=== PATIENT | male | born 1970 | race Caucasian/White ===

== ENCOUNTER 2019-09-19 21:48 | Observation (INO) ==
--- NOTE | 2019-09-19 22:30 | DR.GENAD ---
HPI - PCP Primary Care Physician: NFD - Complaint/Symptoms Chief Complaint Doctors Comments: Patient states he ate a sausage dog at 12 noon and went hog hunting and 12:30 he caught a hog and his noticed that his color was going away and he was pale while he was holding the hog down. States he was catching hogs and cutting there tuff so they would not hurts his dogs. states he started sweating; his eyes rolled back into his head and he threw up on himself and they gave him some peppermint candy and he begin to come around and talk more. States he could not see or hear them during this episode and he had an occipital headache and when he got home he took a tylenol but he had a dull pain left side of his chest with dizziness after he was running after the hog. States the pain is 5 of 10. He denies chest pain but had SOB earlier when he passed out. He denies dysuria, hematuria, fever, chills, cold or cough. He has a history of kidney stones with the last one about a year ago.He denies tobacco, alcohol or drug usage. Chief Complaint:: FAMILY/PATIENT STATES AROUND 6 PM WHILE HE WAS IN THE [place] HE GOT PALE COLD SWEATS THREW UP AND THEN GOT A HEAD ACHE, ACHE SOMETHING BUT DIDNT FEEL ANY BETTER , HAVING PAIN UNDER LEFT SIDE BUT THREW A HOG IN THE [place], FAMILY STATES HE IS STILL PALE SOME, PT STATES HE TOOK BC POWDER AROUND 1 PM AND TYELNOL AROUND 6 PM. PT IN NO DISTRESS IN TRIAGE. Self Treatment fo Chief Complaint: TYLENOL 6 PM. BC 1 PM - Nurses notes reviewed Nurses Notes Review: Yes - Source History Provided: Patient - Mode of Arrival Mode of Arrival: Ambulatory - Timing Onset of Chief Complaint: 09/19/19 Came on: Gradually - Duration Duration: Constant How lon Duration: Hours (left sided chest pain; headache;; syncope) - Severity Severity: Moderate - Modifying Factors Worsens:: nothing Improves:: nothing PMH - PMH Past Medical History: No Past Medical History: Kidney Stones Past Surgical History: Yes Surgical History: Ortho Surgery Past Surgical History Comment: RIGHT ARM/ PINS PLACED AND REMOVED - Family History History of Family Medical Conditions: Yes Family Medical History: Diabetes Mellitus, Cancer - Social History Does patient currently use any type of tobacco product: No Have you used tobacco products in the last 12 months: No Type of Tobacco Use: None Does any household member use tobacco: No Alcohol Use: None Do you use any recreational Drugs:: No Lives With: Family Lives Where: Home - infectious screening In the last 2 months have you had wt loss of >10#?: NO Have you had fever, night sweats or hemotysis?: No Have you traveled outside the country in the last 6 months?: No Isolation: Standard ROS - Review of Systems Constitutional: No Symptoms Reported Eyes: No Symptoms Reported ENTM: No Symptoms Reported Respiratoy: No Symptoms Reported Cardiovascular: No Symptoms Reported, Chest Pain (left dull pain) Gastrointestinal/Abdominal: No Symptoms Reported Genitourinary: No Symptoms Reported. negative: See HPI, Discharge, Dysuria, Frequency, Hematuria, Pain, Bleeding, Other Neurological: No Symptoms Reported, Weakness, Dizziness Musculoskeletal: No Symptoms Reported Integumentary: No Symptoms Reported Hematologic/Lymphatic: No Symptoms Reported. negative: See HPI, Anemia, Blood Clots, Easy Bleeding, Easy Bruising, Swollen Glands, Lymphadenopathy, Other Endocrine: No Symptoms Reported Psychiatric: No Symptoms Reported. negative: See HPI, Anxiety, Depression, Hallucinations, Excessive crying, Suicidal, Other PE - General Limitations: No Limitations General Appearance: Alert, In No Apparent Distress, Obese - Head Head Exam: Normal Inspection, Atraumatic, Normocephalic - Eyes Eye exam: Normal Appearance, PERRL, EOMI. negative: Scleral Icterus, Conjunctival Injection, Nystagmus, Miosis, Mydrasis, Periorbital Swelling, Periorbital Tenderness, Other - ENT ENT Exam: Normal Exam, Normal Oropharynx, Normal External Ear Exam, Mucous Membranes Moist, TM's Normal Bilaterally External Ear Exam: Normal External Inspection TM/Canal Exam: Bilateral Normal Nose Exam: Normal Nose Exam Mouth Exam: Normal Inspection. negative: Drooling, Trismus, Lip Swelling, Tongue Elevation, Tongue Swelling, Laceration, Other Throat Exam: Normal Inspection - Neck Neck Exam: Normal Inspection, Full ROM, Trachea Midline. negative: Tenderness, Meningismus, Lymphadenopathy, Thyromegaly, Other - Chest Chest Inspection: Normal Inspection, Symmetric Chest Wall Rise. negative: Tenderness, Rash, Abscess, Other - Respiratory Respiratory Exam: Normal Lung Sounds Bilat Respiratory Exam: Bilateral Clear to Auscultation - Cardiovascular Cardiovascular Exam: Regular Rate, Normal Rhythm, Normal Heart Sounds - Abdominal Exam Abdominal Exam: Normal Inspection, Normal Bowel Sounds, Soft Abdominal Tenderness: negative: RUQ, RLQ, LUQ, LLQ, Epigastrium, Suprapubic, Diffuse, Mild, Moderate, Severe, Other - Extremities Extremities Exam: Normal Inspection, Full ROM, Normal Capillary Refill. negative: Tenderness, Edema, Joint Swelling, Calf Tenderness, Other - Back Back Exam: Normal Inspection, Full ROM, Tenderness - Neurologic Neurological Exam: Alert, Oriented X3, CN II-XII Intact, Normal Gait, Reflexes Normal - Psychiatric Psychiatric Exam: Normal Affect, Normal Mood. negative: Depressed, Agitated, Anxious, Flat Affect, Manic, Homicidal Ideation, Suicidal Ideation, Other - Skin Skin Exam: Warm, Dry, Intact, Normal Color - Vital Signs Vitals: Temperature 97.8 F Pulse Rate [Standing] 80 Pulse Rate [Sitting] 82 Pulse Rate [Lying] 82 Pulse Rate 65 Respiratory Rate 20 Blood Pressure [Left Arm] 116/73 Blood Pressure [Standing] 148/83 Blood Pressure [Sitting] 138/84 Blood Pressure [Lying] 121/74 Blood Pressure 116/73 O2 Sat by Pulse Oximetry 96 Course - Reevaluation 1st: Improved - Consultation Called: 00:51 Call Returned: 00:51 (Dr. Esteban to admit) - Education/Counseling Education/Counseling: Patient, Family, Counseling Educated On: Treatment, Diagnosis, Needs for Follow Up ROR - Labs Reviewed Laboratory Results Reviewed?: Yes (ALL labs and x-ray results reviewed and discussed with patient) Result Diagrams: 09/19/19 23:16 09/19/19 23:16 - XRAY XRAY Interpreted by: Radiologist (CT head: No acute intracranial hemorrhage.) XRAY Findings: CXR: no acute cardiopulmonary changes; heart size prominent. - EKG Rate: 56 [place]: Normal Rhythm: NSR, SB Block: None Hypertrophy: None ST: Normal - Labs Reviewed Laboratory: WBC 7.6 X10^3/uL (3.6-10.0) 09/19/19 23:16 RBC 4.83 X10^6/uL (4.7-6.0) 09/19/19 23:16 Hgb 14.2 g/dL (13.5-18.0) 09/19/19 23:16 Hct 41.2 % (42.0-54.0) L 09/19/19 23:16 MCV 85.3 fL (80.0-100.0) 09/19/19 23:16 MCH 29.4 pg (27.0-34.0) 09/19/19 23:16 MCHC 34.4 g/dL (33.0-35.0) 09/19/19 23:16 RDW 13.9 % (11.6-16.5) 09/19/19 23:16 Plt Count 236 X10^3/uL (150.0-450.0) 09/19/19 23:16 MPV 7.8 fL (7.4-11.0) 09/19/19 23:16 Neut % (Auto) 55.4 % (42.0-75.0) 09/19/19 23:16 Lymph % (Auto) 32.9 % (21.0-51.0) 09/19/19 23:16 [place] % (Auto) 8.9 % (0.0-13.0) 09/19/19 23:16 Eos % (Auto) 2.1 % (0.9-2.9) 09/19/19 23:16 Baso % (Auto) 0.7 % (0.2-1.0) 09/19/19 23:16 Neut # (Auto) 4.2 x10^3/uL (2.2-4.8) 09/19/19 23:16 Lymph # (Auto) 2.5 X10^3/uL (1.3-2.9) 09/19/19 23:16 Bennett # (Auto) 0.7 x10^3/uL (0.3-0.8) 09/19/19 23:16 Eos # (Auto) 0.2 x10^3/uL (0.0-0.2) 09/19/19 23:16 Baso # (Auto) 0.1 X10^3/uL (0.0-0.1) 09/19/19 23:16 Absolute Nucleated RBC 0.1 /100WBC 09/19/19 23:16 PT 13.8 SECONDS (11.8-14.3) 09/19/19 23:16 INR Target Range - 09/19/19 23:16 INR 1.10 (0.8-1.3) 09/19/19 23:16 APTT 26.5 SECONDS (22.9-36.5) 09/19/19 23:16 PTT Comment - 09/19/19 23:16 D-Dimer 132 ng/mL (0-400) 09/19/19 23:16 Sodium 141 mmol/L (136-145) 09/19/19 23:16 Corrected Sodium TNP 09/19/19 23:16 Potassium 4.1 mmol/L (3.5-5.1) 09/19/19 23:16 Chloride 105 mmol/L (98-107) 09/19/19 23:16 Carbon Dioxide 29.3 mmol/L (21-32) 09/19/19 23:16 BUN 16 mg/dL (7-18) 09/19/19 23:16 Creatinine 1.35 mg/dL (0.70-1.30) H 09/19/19 23:16 Est GFR (MDRD) Af Amer > 60 (>60) 09/19/19 23:16 Est GFR (MDRD) Non-Af 60 (>60) 09/19/19 23:16 Glucose 105 mg/dL (65-99) H 09/19/19 23:16 Hemoglobin A1c 5.7 % 09/19/19 23:16 Calcium 8.3 mg/dL (8.5-10.1) L 09/19/19 23:16 Corrected Calcium TNP 09/19/19 23:16 Magnesium 2.0 mg/dL (1.7-2.9) 09/19/19 23:16 Total Bilirubin 0.30 mg/dL (0.2-1.0) 09/19/19 23:16 AST 22 Units/L (15-37) 09/19/19 23:16 ALT 21 Units/L (12-78) 09/19/19 23:16 Alkaline Phosphatase 46 Units/L (46-116) 09/19/19 23:16 Creatine Kinase 370 Units/L (39-308) H 09/19/19 23:16 CK-MB (CK-2) 2.1 ng/mL (0-4.0) 09/19/19 23:16 CK/CKMB % Calc 0.6 % (<4) 09/19/19 23:16 Troponin I < 0.02 ng/mL (0-1.5) 09/19/19 23:16 Total Protein 7.3 g/dL (6.4-8.2) 09/19/19 23:16 Albumin 3.7 g/dL (3.4-5.0) 09/19/19 23:16 Globulin 3.6 g/dL (2.5-4.5) 09/19/19 23:16 Albumin/Globulin Ratio 1.0 Ratio (1.1-2.1) L 09/19/19 23:16 Specimen Type Clean catch urine 09/20/19 00:22 Urine Color Yellow (YELLOW) 09/20/19 00:22 Urine Appearance Clear (CLEAR) 09/20/19 00:22 Urine pH 6.0 (5.0 - 8.0) 09/20/19 00:22 Ur Specific [place] 1.020 (1.000-1.030) 09/20/19 00:22 Urine Protein 3+ (NEGATIVE) 09/20/19 00:22 Urine Glucose (UA) Negative (NEGATIVE) 09/20/19: Urine Ketones Negative (NEGATIVE) 09/20/19 00: Urine Occult Blood 5+ (NEGATIVE) 09/20/19 00: Urine Nitrite Negative (NEGATIVE) 09/20/19: Urine Bilirubin Negative (NEGATIVE) 09/20/19: Urine Urobilinogen Normal (NORMAL) 09/20/19:22 Ur Leukocyte Esterase Negative (NEGATIVE) 09/20/19 00:22 Urine RBC 3-5 /HPF (0-3) A 09/20/19 00: Urine WBC None seen /HPF (0-5) 09/20/19 00:22 Ur Squamous Epith Cells Rare /HPF (NEGATIVE) 09/20/19 00: Amorphous Sediment Trace /HPF (NEGATIVE) 09/20/19 00:22 Urine Bacteria Negative /HPF (NEGATIVE) 09/20/19 00: Urine Mucus Rare /HPF (NEGATIVE) 09/20/19 00:22 Ur Culture Indicated? No/not indicated 09/20/19 00:22 Urine Opiates Screen Negative (NEG=<300) 09/20/19 00:22 Urine Methadone Screen Negative (NEG=<300) 09/20/19 00:22 Ur Barbiturates Screen Negative (NEG=<200) 09/20/19 00:22 Ur Phencyclidine Scrn Negative (NEG=<25) 09/20/19 00:22 Ur Amphetamines Screen Negative (NEG=<1000) 09/20/19 00:22 U Benzodiazepines Scrn Negative (NEG=<200) 09/20/19 00:22 Urine Cocaine Screen Negative (NEG=<300) 09/20/19 00:22 U Marijuana (THC) Screen Negative (NEG=<50) 09/20/19 00:22 Opioid - Opioid Risk Tool Age (Kev box if 16-45): No Total: 0 Total Score Risk Category: Low Risk - Diagnosis Discharge Problem: Acute alteration in mental status, Syncope and collapse, Speech delay, expressive, Dehydration, Maxillary sinus cyst - Discharge Plan Disposition: 09 ADMITTED INPATIENT Condition: Stable - Follow ups/Referrals Follow ups/Referrals: NFD,None [Primary Care Provider] - 3 days - Instructions
--- NOTE | 2019-09-19 23:25 | RAD ---
Chest AP portableIndication: Chest painCOMPARISONNo recent similar priorFINDINGSHeart size is prominent without pneumothorax, effusion or consolidation.IMPRESSIONHeart size is prominent, without other acute chest process.Electronically signed by: KELLIE CORTEZ (Sep 19, 2019 23:24:10)
--- NOTE | 2019-09-19 23:27 | CT ---
CT head without contrastIndication: Syncope and chest painTECHNIQUEAxial images from the skullbase to the vertex without contrast. Coronal and sagittal reformats provided.FINDINGSThere is no acute intracranial hemorrhage, mass or mass effect. No extra-axial fluid collection or abnormal area of hypoattenuation to suggest infarction is identified. Ventricles and sulci are normal. No osseous lesions seen. Paranasal sinuses and mastoid air cells are clear other than small mucosal retention cyst in left maxillary sinus.IMPRESSIONNo acute intracranial hemorrhageElectronically signed by: KELLIE CORTEZ (Sep 19, 2019 23:25:43)
[2019-09-19 23:30] LABS: BASOPHILS # (AUTO) 0.1 X10^3/uL (0.0-0.1); BASOPHILS % (AUTO) 0.7 % (0.2-1.0); EOSINOPHILS # (AUTO) 0.2 x10^3/uL (0.0-0.2); EOSINOPHILS % (AUTO) 2.1 % (0.9-2.9); HEMATOCRIT 41.2 % (42.0-54.0); HEMOGLOBIN 14.2 g/dL (13.5-18.0); LYMPHOCYTES # (AUTO) 2.5 X10^3/uL (1.3-2.9); LYMPHOCYTES % (AUTO) 32.9 % (21.0-51.0); MEAN CORPUSCULAR HEMOGLOBIN 29.4 pg (27.0-34.0); MEAN CORPUSCULAR HGB CONC 34.4 g/dL (33.0-35.0); MEAN CORPUSCULAR VOLUME 85.3 fL (80.0-100.0); MEAN PLATELET VOLUME 7.8 fL (7.4-11.0); MONOCYTES # (AUTO) 0.7 x10^3/uL (0.3-0.8); MONOCYTES % (AUTO) 8.9 % (0.0-13.0); NEUTROPHILS # (AUTO) 4.2 x10^3/uL (2.2-4.8); NEUTROPHILS % (AUTO) 55.4 % (42.0-75.0); PLATELET COUNT 236 X10^3/uL (150.0-450.0); RED BLOOD COUNT 4.83 X10^6/uL (4.7-6.0); RED CELL DISTRIBUTION WIDTH 13.9 % (11.6-16.5); WHITE BLOOD COUNT 7.6 X10^3/uL (3.6-10.0)
[2019-09-19 23:39] LABS: HEMOGLOBIN A1C 5.7 %
[2019-09-19 23:50] LABS: ALANINE AMINOTRANSFERASE 21 Units/L (12-78); ALBUMIN 3.7 g/dL (3.4-5.0); ALKALINE PHOSPHATASE 46 Units/L (46-116); ASPARTATE AMINO TRANSFERASE 22 Units/L (15-37); BLOOD UREA NITROGEN 16 mg/dL (7-18); CALCIUM 8.3 mg/dL (8.5-10.1); CARBON DIOXIDE 29.3 mmol/L (21-32); CHLORIDE 105 mmol/L (98-107); CKMB % 0.6 % (<4); CREATINE KINASE 370 Units/L (39-308); CREATINE KINASE MB 2.1 ng/mL (0-4.0); CREATININE 1.35 mg/dL (0.70-1.30); SODIUM 141 mmol/L (136-145); TOTAL PROTEIN 7.3 g/dL (6.4-8.2); TROPONIN I < 0.02 ng/mL (0-1.5); eGFR NON BLACK RACES 60 (>60)
[2019-09-20] MEDS ORDERED: NS 1000 ML 1,000 ML IV ONE (00:47)
[2019-09-20] MEDS ORDERED: NS 1000 ML 1,000 ML ONE (00:48)
[2019-09-20 00:51] LABS: APPEARANCE,URINE CLEAR (CLEAR); BILIRUBIN,URINE NEGATIVE (NEGATIVE); BLOOD/HEMOGLOBIN,URINE 5+ (NEGATIVE); COLOR,URINE YELLOW (YELLOW); GLUCOSE, URINE NEGATIVE (NEGATIVE); KETONES,URINE NEGATIVE (NEGATIVE); LEUKOCYTE ESTERASE ,URINE NEGATIVE (NEGATIVE); NITRITES,URINE NEGATIVE (NEGATIVE); PROTEIN,URINE 3+ (NEGATIVE); UROBILINOGEN,URINE NORMAL (NORMAL)
[2019-09-20 00:55] LABS: BACTERIA,URINE NEGATIVE /HPF (NEGATIVE); SQUAMOUS EPITHELIAL CELL,UR RARE /HPF (NEGATIVE)
[2019-09-20 00:56] LABS: AMORPHOUS SEDIMENT,UR TRACE /HPF (NEGATIVE); MUCUS,URINE RARE /HPF (NEGATIVE)
[2019-09-20] MEDS ORDERED: HumuLIN R SUBCUT PRN (01:07)
[2019-09-20 02:28] VITALS: BMI 39.1
[2019-09-20] MEDS: NS 1000 ML 1,000 ML IV SCH ×2 (03:00→17:06)
[2019-09-20 06:37] LABS: CKMB % 0.5 % (<4); CREATINE KINASE 344 Units/L (39-308); CREATINE KINASE MB 1.8 ng/mL (0-4.0); TROPONIN I < 0.02 ng/mL (0-1.5)
[2019-09-20 09:57] LABS: CHOL/HDL RATIO 4.8 (0.0-5.0)
[2019-09-20 12:47] LABS: CKMB % 0.4 % (<4); CREATINE KINASE 362 Units/L (39-308); CREATINE KINASE MB 1.6 ng/mL (0-4.0); TROPONIN I < 0.02 ng/mL (0-1.5)
[2019-09-20] MEDS: SNACK - Diabetic Appropriate PO SCH (21:00)
--- NOTE | 2019-09-20 23:15 | DR.H&P ---
H&P - History & Physical for Day of: H&P Date: 09/20/19 - Chief Complaint Chief Complaint: SYNCOPE, WEAKNESS, NAUSEA AND VOMITING - History of Present Illness History of Present Illness: IS A 49 YEAR OLD WHITE MALE WHO PRESENTED TO THE ER WITH COMPLAINTS OF A SYNCOPAL EPISODE. THERE WAS ASSOCIATED VOMITING, SOB, AND HEADACHE. SYMPTOMS OCCURRED AT APPROXIMATELY 12 NOON, HOWEVER, PATIENT DID NOT PRESENT TO THE ER UNTIL APPROXIMATELY 22:00. ON ARRIVAL, VITALS WERE 97.8-65-20-96%-137/85. LABS WERE OBTAINED. ABNORMAL LAB VALUES INCLUDE THE FOLLOWING: HCT 41.2, CREATININE 1.35, GLUCOSE 105, CALCIUM 8.3, CREATINE KINASE 344, HDL 27. URINALYSIS IS UNREMARKABLE. A BRAIN CT WAS OBTAINED AND REVEALED: NO ACUTE INTRACRANIAL HEMORRHAGE OR ABNORMALITY. SMALL MUCOSAL RETENTION CYST IN LEFT MAXILLARY SINUS. A CHEST XRAY WAS OBTAINED AND REVEALED: HEART SIZE PROMINENT, WITHOUT OTHER ACUTE CHEST PROCESS. EKG REVEALED: SINUS RHYTHM WITH HR 56. HE WAS GIVEN A NORMAL SALINE BOLUS IN THE ER. HE WAS THEN ADMITTED FOR FURTHER EVALUATION AND TREATMENT OF SYNCOPE, DEHYDRATION, MAXILLARY SINUS CYST, AND AMS. HE WAS STARTED ON NORMAL SALINE AT 80 ML/HR. WE WILL OBTAIN A BRAIN MRI, ECHO, AND CAROTID DOPPLER TOMORROW. OTHERWISE, WE WILL FOLLOW UP WITH AM LABS AND CONTINUE TO MONITOR. - Past Medical History Past Medical History: Kidney Stones - Past Surgical History Surgical History: Ortho Surgery - Family History Family Medical History: Diabetes Mellitus, Cancer - Social History Does patient currently use any type of tobacco product: No Have you used tobacco products in the last 12 months: No Type of Tobacco Use: None Does any household member use tobacco: No Alcohol Use: None Drug Use: None - Medications Home Medications: No Known Drug Allergies Allergy (Verified 09/20/19 02:31) CONTINUE taking the following medications NK 09/19/19 [History] - Review of Systems Constitutional: Weakness Eyes: No Symptoms Reported ENT: No Symptoms Reported Respiratory: No Symptoms Reported Cardiovascular: Light Headedness Gastrointestinal: Nausea, Vomiting Genitourinary: No Symptoms Reported Musculoskeletal: No Symptoms Reported Skin: No Symptoms Reported Neurological: Weakness - Physical Exam Vital Signs: Temperature 98.2 F Pulse Rate [Right Brachial] 63 Pulse Rate [Standing] 80 Pulse Rate [Sitting] 82 Pulse Rate [Lying] 82 Pulse Rate 65 Respiratory Rate 20 Blood Pressure [Left Arm] 119/71 Blood Pressure [Standing] 148/83 Blood Pressure [Sitting] 138/84 Blood Pressure [Lying] 121/74 Blood Pressure 116/73 O2 Sat by Pulse Oximetry 97 Oriented: Normal Eyes: Normal Ear: Normal Nose: Normal Throat: Normal Respiratory: Diminished Throughout Cardiovascular: Normal : Normal Auscultation: Bowel Sounds: Normal Palpation: Normal Tenderness: Normal Skin: Normal Musculoskeletal: Normal Psychiatric: Normal Mood Description: Calm Affect: Normal Speech Pattern: Clear - Assessment/Plan (1) Syncope and collapse Status: Acute Plan: ADMIT, IV FLUIDS, OBTAIN A BRAIN MRI, ECHO, AND CAROTID DOPPLER TOMORROW, CONTINUE TO MONITOR (2) Dehydration Status: Acute (3) Acute alteration in mental status Status: Acute (4) Speech delay, expressive Status: Acute (5) Maxillary sinus cyst Status: Acute - Allergies Allergies/Adverse Reactions: Allergies Allergy/AdvReac Type Severity Reaction Status Date / Time No Known Drug Allergies Allergy Verified 09/20/19 02:31
[2019-09-21] MEDS ORDERED: TYLENOL 325 MG TAB PO PRN (04:57)
[2019-09-21] MEDS: NS 1000 ML 1,000 ML IV SCH ×3 (05:02→17:35)
[2019-09-21 06:14] LABS: BASOPHILS % (AUTO) 0.9 % (0.2-1.0); EOSINOPHILS # (AUTO) 0.2 x10^3/uL (0.0-0.2); EOSINOPHILS % (AUTO) 3.5 % (0.9-2.9); HEMATOCRIT 37.5 % (42.0-54.0); HEMOGLOBIN 13.1 g/dL (13.5-18.0); LYMPHOCYTES % (AUTO) 39.1 % (21.0-51.0); MEAN CORPUSCULAR HEMOGLOBIN 29.5 pg (27.0-34.0); MEAN CORPUSCULAR HGB CONC 34.9 g/dL (33.0-35.0); MEAN CORPUSCULAR VOLUME 84.5 fL (80.0-100.0); MONOCYTES # (AUTO) 0.4 x10^3/uL (0.3-0.8); MONOCYTES % (AUTO) 8.7 % (0.0-13.0); NEUTROPHILS # (AUTO) 2.4 x10^3/uL (2.2-4.8); NEUTROPHILS % (AUTO) 47.8 % (42.0-75.0); PLATELET COUNT 203 X10^3/uL (150.0-450.0); RED BLOOD COUNT 4.43 X10^6/uL (4.7-6.0); RED CELL DISTRIBUTION WIDTH 13.6 % (11.6-16.5); WHITE BLOOD COUNT 5.1 X10^3/uL (3.6-10.0)
[2019-09-21 06:15] LABS: ALANINE AMINOTRANSFERASE 17 Units/L (12-78); ALBUMIN 3.2 g/dL (3.4-5.0); ALKALINE PHOSPHATASE 39 Units/L (46-116); ASPARTATE AMINO TRANSFERASE 19 Units/L (15-37); BLOOD UREA NITROGEN 15 mg/dL (7-18); CALCIUM 7.7 mg/dL (8.5-10.1); CARBON DIOXIDE 23.5 mmol/L (21-32); CHLORIDE 107 mmol/L (98-107); COR CA(FOR HYPOALB) 8.3 mg/dL (8.5-10.1); CREATININE 1.29 mg/dL (0.70-1.30); SODIUM 140 mmol/L (136-145); TOTAL PROTEIN 6.3 g/dL (6.4-8.2); eGFR NON BLACK RACES > 60 (>60)
--- NOTE | 2019-09-21 16:40 | MRI ---
HISTORYSYNCOPE, WEAKNESSSTUDYBRAIN W/O [id number], multisequence imaging of the brain was performed includi ng the tibial I, ADC map and T2 star imaging. No intravenous contrast was administered.FINDINGSThe mi dline structures appear intact. The posterior fossa is unremarkable. The sulcal markings of the bra in are normal in their appearance. Normal [place]-white differentiation is maintained. No evidence for intraparenchymal hemorrhage or mass can be identified. No extra-axial fluid collections or subarach noid hematoma can be seen. Evaluation of the diffusion weighted images demonstrates no evidence for acute ischemic change. The cerebral pontine angle is normal in its contour without evidence for mass . The ventricular system appears symmetric and nondilated.Small amount of fluid is noted within the right mastoid air cells.Postcontrast enhancement demonstrates no evidence for an enhancing lesion suc h as mass or vascular malformation.IMPRESSIONIncreased fluid within the right mastoid air cells, t[place] elation with clinical findings to exclude an acute mastoiditis.No acute intracranial abnormality.Elec tronically signed by: JOZEF HUYNH (Sep 21, 2019 16:38:45)
[2019-09-21] MEDS ORDERED: CIPRO TAB 500 MG PO ONE (17:33)
[2019-09-21 20:22] VITALS: BP 130/81
[2019-09-21] MEDS: SNACK - Diabetic Appropriate PO SCH (20:22)
== END 2019-09-21 21:44 | disposition home or self-care (01) ==
LOC: MED/SURG 21:48 → ER 21:48 → MED/SURG 09-20 02:00
PROVIDERS: ADMIT Internal Medicine; ATTEND Internal Medicine
CPT/HCPCS: 36415; 70450; 70551; 71010; 71045; 80053; 80061; 80307; 81001; 82550; 82553; 83036; 83735; 84484; 85025; 85378; 85610; 85730; 93005; 93306; 93880; 96360; 96361; 96365; 99284; A4216; A4222; G0378; G0434; J3490; J7030